=== PATIENT | male | born 1945 | race Caucasian/White ===

== ENCOUNTER 2016-06-03 09:59 | Inpatient (IN) | payer OTHER ==
[~2016-06-03 09:59] MED LIST: ACETAMINOPHEN 325 MG TAB PO ONE; CEFAZOLIN 2 GM/DEXTR 100 ML IV ONE; CHLORHEXIDINE GLUC HIBICLENS 118 ML BTL TP ONE; DEXAMETHASONE 4 MG/ML VIAL IVP ONE; FAMOTIDINE 20 MG TAB PO ONE; ROPIVACAINE 0.2% 80 MG, EPINEPHrine 0.2 MG in BAG 0 ML IU ONE; SKIN ADHESIVE (DERMABOND) 1 EACH TP ONE; TRANEXAMIC ACID 3,000 MG in NS 50 ML IRR ONE; TRANEXAMIC ACID 3,000 MG/50 ML BAG IRR ONE; VANCOMYCIN 1 GM VIAL IV ONE
[2016-06-03] MEDS ORDERED: FAMOTIDINE 20 MG TAB ONE (10:48)
[2016-06-03] MEDS ORDERED: CEFAZOLIN 2 GM/DEXTROSE/100 ML BAG IV ONE (10:49)
[2016-06-03] MEDS ORDERED: DEXAMETHASONE 4 MG/ML VIAL ONE (10:49)
[2016-06-03] MEDS ORDERED: ACETAMINOPHEN 325 MG TAB ONE (10:50)
[2016-06-03] MEDS ORDERED: PROPOFOL 200 MG/20 ML VIAL ONE (11:17)
[2016-06-03] MEDS ORDERED: fentaNYL 100 MCG/2 ML INJ ONE (11:17)
[2016-06-03] MEDS ORDERED: MIDAZOLAM 2 MG/2 ML VIAL ONE (11:43)
[2016-06-03] MEDS ORDERED: LIDOCAINE 2% 5 ML SDV ONE (12:13)
[2016-06-03 12:17] LABS: ANION GAP 8 mEq/L (8-16); CALCIUM 9.3 mg/dL (8.5-10.4); CARBON DIOXIDE 23 mEq/l (22-31); CHLORIDE 112 mEq/L (97-110); CREATININE 2.6 mg/dL (0.7-1.3); GLOMERULAR FILTRATION RATE 24; GLUCOSE 119 mg/dL (70-100); POTASSIUM 5.5 mEq/L (3.5-5.2); SODIUM 143 mEq/L (134-144)
[2016-06-03] MEDS ORDERED: PROPOFOL/EMULSION 500 MG/50 ML BOTTLE IV ONE (12:24)
[2016-06-03] MEDS ORDERED: hydrALAZINE 20 MG/ML VIAL ONE (13:38)
[2016-06-03] MEDS ORDERED: diphenhydrAMINE 25 MG CAP PO PRN (13:42)
[2016-06-03] MEDS ORDERED: DIPHENOXYLATE/ATROPINE LOMOTIL 1 TAB PO PRN (13:42)
[2016-06-03] MEDS ORDERED: PHARMACY PAIN CONSULT 1 EA MISC PRN (13:42)
[2016-06-03] MEDS ORDERED: CYCLOBENZAPRINE 10 MG TAB PO PRN (13:42)
[2016-06-03] MEDS ORDERED: ONDANSETRON 4 MG/2 ML VIAL IVP PRN (13:42)
[2016-06-03] MEDS ORDERED: METOCLOPRAMIDE 10 MG/2 ML VIAL IVP PRN (13:42)
[2016-06-03] MEDS ORDERED: ONDANSETRON DISINTEGRATING 4 MG TAB PO PRN (13:42)
[2016-06-03] MEDS ORDERED: TEMAZEPAM 15 MG CAP PO PRN (13:42)
[2016-06-03] MEDS ORDERED: POLYETHYLENE GLYCOL 3350 17 GM PKT PO PRN (13:42)
[2016-06-03] MEDS ORDERED: MAGNESIUM HYDROXIDE 30 ML UDCUP PO PRN (13:42)
[2016-06-03] MEDS ORDERED: BISACODYL 10 MG SUPP PR PRN (13:42)
[2016-06-03] MEDS ORDERED: LACTULOSE 20 GM/30 ML UDCUP PO PRN (13:42)
[2016-06-03] MEDS ORDERED: PROMETHAZINE HCL 25 MG SUPPR PR PRN (13:42)
--- NOTE | 2016-06-03 13:42 | POSTOPPROG ---
Post Op Note Date of Operation: 06/03/16 Surgeon: Viktoria Paredes Outreach Manager: usha paredes Anesthesiologist: dr. pierre Anesthesia: Spinal, Other (Specify) (adductor canal block) Pre-op Diagnosis: right knee OA Post-op Diagnosis: same Indication: right knee pain due to OA that failed conservative measures Procedure: R TKA Findings: severe knee OA Inf/Abcess present in the surg proc area at time of surgery?: No EBL: 50-100
[2016-06-03] MEDS ORDERED: NS 1,000 ML IV SCH (13:45)
[2016-06-03] MEDS ORDERED: NON-FORMULARY NEW DRUG (Propylene Glycol/Peg 400/Pf [Systane 0.3-0.4% Eye Drops] 1 EACH) OP PRN (13:47)
[2016-06-03] MEDS ORDERED: COLCHICINE 0.6 MG CAP/TAB PO PRN (13:47)
[2016-06-03] MEDS ORDERED: TEARS/DEXTRAN 70/HYPROMELLOSE 15 ML OPHT.BTL EACHEYE PRN (15:11)
[2016-06-03] MEDS: oxyCODONE IR 5 MG TAB PO PRN ×3 (16:47→20:35)
[2016-06-03] MEDS: ACETAMINOPHEN 325 MG TAB PO SCH ×2 (17:36→23:30)
[2016-06-03] MEDS: LABETALOL HCL 100 MG TAB PO SCH (20:31)
[2016-06-03] MEDS: MINOXIDIL 10 MG TAB PO SCH (20:34)
[2016-06-03] MEDS: ASPIRIN 81 MG CHEWABLE TAB PO SCH (20:34)
[2016-06-03] MEDS: SENNOSIDES/DOCUSATE SODIUM TAB PO SCH (20:35)
[2016-06-03] MEDS: ceFAZolin 2 GM/DEXTROSE 100 ML IV SCH (20:36)
--- NOTE | 2016-06-03 23:10 | GCON ---
[f rep st] CONSULTATION DATE OF CONSULTATION: 06/02/2016 REFERRING PHYSICIAN: Christian Ford MD I am asked by Dr. Jose Ford to evaluate and assist in the care of this patient, who is in for total knee replacement and has history of renal disease and diabetes. HISTORY: The patient has history of longstanding joint problems, including both knees, and he has h ad multiple knee surgeries, including a previous left knee replacement and comes in now for a right total knee arthroplasty, which was done earlier today. The patient tolerated the surgery well and h ad no complications. I am seeing the patient back in his hospital room after the surgery this eveni ng. He feels well with some modest knee pain. There is no nausea, chest pain, shortness of breath, neurologic symptoms, or other concerning symptoms. He has eaten. He has no symptoms of fever. REVIEW OF SYSTEMS: Ten systems reviewed and reveals no other concerning abnormalities. PAST MEDICAL HISTORY: Chronic type 2 diabetes mellitus, diabetic nephropathy with chronic kidney di sease, sleep apnea, hypertension, gout, coronary disease which is nonobstructive, senile macular deg eneration, osteoarthritis, and a tongue-reduction surgery. FAMILY HISTORY: Diabetes mellitus. SOCIAL HISTORY: The patient is , does not smoke, uses only modest amount of alcohol. ALLERGIES: Gabapentin and clindamycin. MEDICATIONS: I have reviewed his home medicine list, which is reconciled by our pharmacist, and Dr. Ford has ordered appropriate medications. PHYSICAL EXAMINATION: VITAL SIGNS: This evening, he has blood pressure initially 153/80, pulse of 58, respirations 18, temperature is 36.8. GENERAL: The patient is lying in a hospital bed, wide aw farzad, alert, normally oriented. He is relaxed. Respirations are not labored. SKIN: Warm and dry w ith good color. HEENT: Unremarkable. Voice is normal. NECK: No swelling, mass, adenopathy, or t [place] displacement. LUNGS: Clear breath sounds. HEART: Regular without murmur. ABDOMEN: Soft , nondistended. Bowel sounds are present. No palpable abnormality. Nontender. EXTREMITIES: His right leg has a cooling device on the knee over Teofilo wraps, and there is compression stocking on. Th e foot is warm with minimal swelling. The left leg looks good overall. Upper extremities unremarka ble. There is no bleeding or bruising. No rashes. LABORATORY DATA: So far today, blood sugars running between 119 and 138. Chemistry with potassium 5.5, creatinine 2.6, with his longstanding creatinine baseline recently around 2.3. IMPRESSION: 1. Status post successful total knee arthroplasty without complications. 2. Chronic kidney disease, currently with trending very near to his baseline. 3. Hyperkalemia. 4. Diabetes mellitus with reasonable control at this time. RECOMMENDATIONS: 1. Will recheck his renal function in the morning. At this point, it would be reasonable to contin ue some IV fluid to ensure that his kidneys are adequately perfused, and this has already been order ed by Dr. Ford. 2. Will recheck potassium in the morning. Will avoid medicines that may aggravate hyperkalemia as possible. 3. I have discontinued the order for magnesium-containing laxatives, as these would be relatively c ontraindicated in his renal state. 4. Will follow his sugars closely and make adjustments in treatment as indicated. /[id number]/MODL
[2016-06-04 03:30] VITALS: RESP 16; TEMP 98.6
[2016-06-04] MEDS: ceFAZolin 2 GM/DEXTROSE 100 ML IV SCH (03:52)
[2016-06-04] MEDS: oxyCODONE IR 5 MG TAB PO PRN ×3 (03:52→11:03)
[2016-06-04] MEDS: ACETAMINOPHEN 325 MG TAB PO SCH ×2 (05:25→11:03)
[2016-06-04 05:46] LABS: HEMATOCRIT 26.2 % (40.0-51.0); HEMOGLOBIN 8.7 g/dL (13.7-17.5)
[2016-06-04 06:03] LABS: ANION GAP 9 mEq/L (8-16); CALCIUM 8.8 mg/dL (8.5-10.4); CARBON DIOXIDE 20 mEq/l (22-31); CHLORIDE 111 mEq/L (97-110); CREATININE 2.7 mg/dL (0.7-1.3); GLOMERULAR FILTRATION RATE 23; GLUCOSE 122 mg/dL (70-100); POTASSIUM 5.2 mEq/L (3.5-5.2); SODIUM 140 mEq/L (134-144)
[2016-06-04] MEDS: MINOXIDIL 10 MG TAB PO SCH (07:51)
[2016-06-04] MEDS: LABETALOL HCL 100 MG TAB PO SCH (07:52)
[2016-06-04] MEDS: SENNOSIDES/DOCUSATE SODIUM TAB PO SCH (07:54)
[2016-06-04] MEDS: ASPIRIN 81 MG CHEWABLE TAB PO SCH (07:54)
[2016-06-04] MEDS ORDERED: ROSUVASTATIN CALCIUM 20 MG TAB PO SCH (09:00)
[2016-06-04] MEDS ORDERED: FAMOTIDINE 20 MG TAB PO SCH (09:00)
--- NOTE | 2016-06-04 09:55 | SOAPPROG ---
SOAP Progress Note Assessment/Plan: Assessment: Rivera is doing well POD 1 s/p R TKA 1. pain management: pain is well controlled on oral pain meds 2. VTEppx: recommend ASA 81mg BID daily for 3 weeks. rec PURVI and SCDs. Prior to surgery he was on 81 mg daily 3. Anemia: H/H 8.7/26 level expected initially postop as patient had 12/36 H/H on 05/11/16, asymptomatic. Will order H/H outpatient through home health 4. D/c planning: recommend d/c to home with home health services pending release from PT today. 5. postop urinary retention: resolved today 6. muscle spasms: flexeril alleviated symptoms, will send script to patient's pharmacy via our EMR system at [facility] 7. CKD: Cr 2.7 today, yesterday 2.6. stable. appreciate hospitalist input in managing his comorbidities. Will order BMP outpatient through home health 8. hyperkalemia: improved today, K 5.2 (WNL) today, 5.5 yesterday. appreciate hospitalist input in managing his comorbidities. Plan: 06/04/16 09:51 06/04/16 09:55 Subjective: Rivera is doing well today, denies SOB, chest pain and N/v. states muscle spasms improved with flexeril. had home health services after his L TKA several years ago and he would like it postop R TKA. Objective: Vital Signs Temp Pulse Resp BP Pulse Ox 37.0 C 60 16 146/72 H 99 06/04/16 03:29 06/04/16 07:52 06/04/16 03:29 06/04/16 07:52 06/04/16 03:29 Laboratory Results 06/04/16 05:24 06/04/16 05:24 06/03/16 06/04/16 06/05/16 05:59 05:59 05:59 Intake Total 2250 Output Total 850 Balance 1400 RLE: incision dressing is clean and dry, NVI, +pf/df ICD10 Worksheet Patient Problems: Problems Problem Status Onset HTN (hypertension) Acute Primary localized osteoarthritis of right knee Acute CKD (chronic kidney disease) Chronic Diabetes Chronic Osteoarthritis of knee Acute GEOVNANA (obstructive sleep apnea) Chronic
--- NOTE | 2016-06-04 10:04 | PDFACE2FAC ---
Face to Face Encounter 1. I certify that this patient is under my care and that I, or a nurse practitioner or physician's surveyor's assistant working with me, had a zowo-xq-[id number] encounter that meets the physician ywpu-az-[id number] encounter requirements with this patient on 06/04/16. 2. I certify that based on my findings, the following services are medically necessary home health services: [X Nursing] [X Physical Therapy] [ Speech-Language Pathology] 3. The medical condition and clinical findings that support the need for specialized skills, knowledge and judgement of the above services are: [s/p R TKA must use FWW and has multiple comorbidities] 4. I certify this patient is homebound* because [the patient's condition restricts their ability to leave their home except with the assistance of another individual or the aid of a supportive device.] must use FWW I certify that this patient is confined to his/her home and needs intermittent halfway care, physical and/or speech therapy. This patient is under my care and I have authorized home health services. * Homebound is defined by Medicare as follows: absences from home require considerable and tacking effort and or for medical reasons or zoroastrian services or are infrequent or of short duration when for other reasons*.
--- NOTE | 2016-06-04 10:08 | PDIAF ---
- Diagnosis Diagnosis: s/p R TKA with diabetes and CKD Code Status: Full Code - Medication Management Discharge Medications: Medications to Continue on Transfer Minoxidil [Minoxidil 10 mg (*)] 5 mg PO BID 10/30/13 [Last Taken 06/02/16] Aflibercept [Eylea] 2 mg LEFTEYE Q84D 04/29/16 [Last Taken 06/02/16] Colchicine [Colchicine (*)] 1.2 mg PO AD PRN 04/29/16 [Last Taken 06/02/16] Labetalol HCl [Trandate 100 mg (*)] 150 mg PO BID 04/29/16 [Last Taken 06/03/16] Propylene Glycol/Peg 400/Pf [Systane 0.3-0.4% Eye Drops] 1 each OP Q4-6PRN PRN 04/29/16 [Last Taken Unknown] Rosuvastatin Calcium [Crestor 20mg (*)] 20 mg PO DAILY 04/29/16 [Last Taken ] Zolpidem Tartrate [Ambien] 5 mg PO HS 04/29/16 [Last Taken 06/02/16] clonIDINE [Catapres (*)] 0.2 mg PO BID 04/29/16 [Last Taken 06/02/16] clonIDINE [Catapres-Tts (*)] 0.3 mg TD SA 04/29/16 [Last Taken 06/02/16] Acetaminophen [Tylenol 325mg (*)] 650 mg PO Q6HRS #0 tab 06/04/16 [Last Taken Unknown] Aspirin [Aspirin 81mg (*)] 81 mg PO BID #0 tab.chew 06/04/16 [Last Taken Unknown ] Cyclobenzaprine [Flexeril 10 MG (*)] 10 mg PO Q8HRS PRN #0 tab 06/04/16 [Last Taken Unknown] Sennosides/Docusate Sodium [Senokot-S] 1 - 2 tab PO BID #0 tab 06/04/16 [Last Taken Unknown] oxyCODONE IR [Oxycodone Ir (*)] 5 - 10 mg PO Q3HRS PRN #0 tab 06/04/16 [Last Taken Unknown] Discharge Medications: Refer to the Discharge Home Medication list for PRN reason. - Orders Services needed: Home Care, Registered Nurse, Physical Therapy Home Care Face to Face: I certify that this patient was under my care and that I had the required kewl-si-[id number] encounter meeting the encounter requirements on the discharge day. My findings support the fact that the patient is homebound as defined in CMS Chapter 7 Medicare Benefits Manual 30.1.1, The condition of the patient is such that there exists a normal inability to leave home and consequently, leaving home would require a considerable and taxing effort. Diet Recommendation: no restrictions on diet Diet Texture: Regular Texture Diet Additional: Joint Protocol-Knee Replacement. Follow up with Dr. Kilgore office as scheduled 06/23/16 at 1:45pm. After surgery instructions: Take Aspirin 81mg by mouth twice daily for 3 weeks (helps to prevent blood clots). Wear thigh high PURVI hose on both legs during the daytime for 2 weeks (helps to prevent blood clots and decrease swelling in the surgical leg). It is ok to remove PURIV hose at night time to give your legs a break. It is common for swelling and bruising to occur in the entire surgical leg even extending to the foot, if concerned call Dr. Maciel office [phone]. Elevate the surgical leg with the ankle above the hip several times a day. Ideally anytime you are resting throughout the day. Attempt to keep the knee straight while elevating by placing pillows under the ankle instead of the knee to elevate. This may be painful, so please do as much as tolerated. This will help you achieve full knee extension. Use a walker for 7-14 days. Start physical therapy. Wear an samira wrap on the knee for 3-4 days after surgery, then it is no longer needed. Do exercises in the book 2-3 times a day. Ice at least 3-5 times a day for 30 minutes each time, if not more often. We also recommend using the ice machine before falling asleep to help with pain. If you have further questions that are not addressed here, please look at the information packet handed to you at the preop appointment. Most will be answered on the FAQs, after surgery instructions and incision care pages. *IF YOU HAVE A LIFE THREATENING EMERGENCY , CALL 911. FOR NON-LIFE THREATENING ISSUES, PLEASE CALL DR. KILGORE OFFICE FIRST. A PHYSICIAN IS LOSS PREVENTION REPRESENTATIVE 03/10. Incision/Dressing Care: May shower tomorrow, please cover incision dressing (delcid one) with saran wrap or press-n- seal before showering as the incision dressing is water resistant, but not waterproof. Keep the incision (delcid) dressing clean and dry. If the incision dressing gets soiled or wet underneath, change dressing to the dressing given to you by the hospital. (delcid dressing will turn black if drainage occurs). Remove incision dressing (delcid one) two weeks after surgery. Leave steri strips alone. They will fall off on their own. Do not have anyone else remove the incision dressing prior to the stated recommendation (2 weeks after surgery) . If there are incision concerns, contact Dr. Mcaiel office. (Cat or Dr. Ford may remove earlier if concerns arise). If incision site (delcid dressing) has drainage for more than 4 days or requiring you to change the dressing once a day, call Dr. Maciel office, . Cat and Dr. Ford may ask you to come into the office for further evaluation - Labs/Radiology BMP Date: 06/09/16 (morning call Dr. Ford's office and ask for Alie at [phone]) HCT/HGB Date: 06/09/16 (morning, results called into Alie at Dr. Ford's office at [phone]) Call or Fax Lab and Imaging Results to: Alie at Dr. Ford's office at - Follow Up Care Current Providers and Referrals: Viktoria Ford MD [Medical Doctor] - 06/23/16 1:45 pm Doctor Not,On Staff, [Primary Care Provider] -
--- NOTE | 2016-06-04 10:27 | SOAPPROG ---
SOAP Progress Note Assessment/Plan: Assessment:Patient doing very well, he is POD#1 s/p right total knee arthroplasty under a spinal anesthetic with adductor canal block performed for postop pain control. He did very well postop, pain well controlled. Anemia is present, and expected, as a consequence of intra- and postop blood loss, will be corrected during the following days. Creatinine basically unchanged from yesterday, K values decreased to normal levels. He has a follow-up appointment with his annealer on June 09, and any issues related to his chronic renal insufficiency will be addressed. Plan: He had an uneventful postop course and will be discharged today. 06/04/16 10:22 Objective: Vital Signs Temp Pulse Resp BP Pulse Ox 37.0 C 60 16 146/72 H 99 06/04/16 03:29 06/04/16 07:52 06/04/16 03:29 06/04/16 07:52 06/04/16 03:29 Laboratory Results 06/04/16 05:24 06/04/16 05:24 06/03/16 06/04/16 06/05/16 05:59 05:59 05:59 Intake Total 2250 Output Total 850 Balance 1400 ICD10 Worksheet Patient Problems: Problems Problem Status Onset HTN (hypertension) Acute Primary localized osteoarthritis of right knee Acute CKD (chronic kidney disease) Chronic Diabetes Chronic Osteoarthritis of knee Acute GEOVANNA (obstructive sleep apnea) Chronic
--- NOTE | 2016-06-04 11:46 | GDS ---
[f rep st] DISCHARGE SUMMARY ADMISSION DIAGNOSIS: Right knee osteoarthritis. DISCHARGE DIAGNOSIS: Right knee osteoarthritis. PROCEDURE: Right total knee arthroplasty. VTE PROPHYLAXIS: Aspirin recommended 81 mg b.i.d. for 3 weeks. BRIEF DESCRIPTION OF HOSPITAL STAY: Patient was admitted for an elective joint arthroplasty. The p atient tolerated the procedure well and has passed physical therapy. The patient was given appropri ate antibiotic prophylaxis and venous thromboembolism prophylaxis. The patient's pain was well cont rolled on oral pain medication, patient was holding down food, and had urinated. Decision was made to discharge the patient. The patient was given post-operative prescriptions pre-operatively. PLAN: Please follow up as scheduled with Dr. Ford's office June 23 at 1:45 p.m. /[id number]/MODL
[2016-06-04 11:56] VITALS: BP 165/96
--- NOTE | 2016-06-04 12:01 | GOP ---
[f rep st] OPERATIVE REPORT DATE OF OPERATION: 06/03/2016 SURGEON: Christian Ford MD HARBORMASTER: RAHUL Mancuso ANESTHESIA: Spinal. PREOPERATIVE DIAGNOSIS: Right knee osteoarthritis. POSTOPERATIVE DIAGNOSIS: Right knee osteoarthritis. PROCEDURE PERFORMED: Right total knee arthroplasty. FINDINGS: Pathology of severe tricompartmental arthritis. Preop flexor contraction to 10 degrees. ESTIMATED BLOOD LOSS: 100 mL. INDICATIONS: This is a 70-year-old male with severe and progressive pain and deformity of the right knee unresponsive to conservative care. Risks and benefits of the surgical intervention were expla ined in detail. DESCRIPTION OF PROCEDURE: The patient was brought to the operative room and placed on the table in the supine position. Spinal anesthesia was induced without difficulty. A pneumatic tourniquet was applied about the right proximal thigh, and the leg was prepped and draped in a sterile fashion. Th e leg arredondo was applied. After exsanguination by elevation the tourniquet was inflated to 250 mm o f mercury. Incision was made anterior medial from the tibial tuberosity to a point 2 cm proximal to the superio r pole of the patella. Medial parapatellar arthrotomy was carried out from the superior pole of the patella and posteriorly in line with the fibers of the Type II VMO. The medial collateral ligament was elevated and the infrapatellar fat pad was resected. The patella was everted and the articular surface was excised. A 35 mm patellar button was placed. The distal femoral guide hole was drilled and the 6-degree alignment kailee was placed. A 10 mm distal femoral cut was made without difficulty. Attention was turned to the tibia and a standard 4 mm cut based on the medial tibial condyle was per formed. The tibial articular surface was excised without difficulty. Attention was turned back to the femur and a size 6 Triathlon femoral cutting block was positioned. Anterior, posterior, and chamfer cuts were made, followed by the intercondylar box cut. The knee was extended and the remnants of the medial and lateral meniscus were excised. The posteri or capsule was injected with ropivacaine, epinephrine and Toradol. A size 7 MIS mini-keel tibial tr ay was positioned. Trial reduction was then carried out. There was excellent range of motion, alig nment, and stability using the 9 mm polyethylene. All trials were then removed. The joint was thoroughly irrigated and carefully dried. Two packages of cement and 2 grams of vancomycin were mixed in the vacuum mixer and placed on the fixation surfa heide of all surfaces of the components. The components were implanted and all excess cement was thor oughly removed. The permanent 9 mm polyethylene was placed without difficulty. The tourniquet was deflated and all bleeders were coagulated. The wound was thoroughly irrigated an d closed using interrupted sutures of 2-0 Vicryl for the joint capsule. The subcu was closed with 3 -0 Vicryl and the skin with 4-0 Monocryl. Dermabond and Steri-Strips were applied followed by a com pressive dressing. The patient was then moved from the operating room to the recovery room in good condition, having tolerated the procedure well. /[id number]/MODL
[2016-06-04 12:05] VITALS: PULSE 57; O2SAT 97
--- NOTE | 2016-06-04 12:53 | HOSPPROG ---
Hospitalist Progress Note Assessment/Plan: # HTN - remains stable overnight - SBP 120-160 overnight - cont labetalol, minoxidil and clonidine at home dosing # CKD - presented at creatinine 2.6 - suspect this is likely new baseline repeat creatinine 2.7 stable this am -after IVF overnight - no need for med changes at dc # DM - BS 113-210 - cont home meds # Acute blood loss anemia - hbg 8 post-op - VS stable - follow with Liliana # Total Knee arthroplasty - XRAy ( personally reviewed and interpreted) knee arthroplasy - follow up per Liliana I have discussed the case with Case Management patient discharging to home today Subjective: no events overnight Objective: Vital Signs Temp Pulse Resp BP Pulse Ox 37.0 C 57 L 16 165/96 H 97 06/04/16 03:29 06/04/16 08:30 06/04/16 03:29 06/04/16 11:01 06/04/16 08:30 Laboratory Results 06/04/16 05:24 06/04/16 05:24 06/03/16 06/04/16 06/05/16 05:59 05:59 05:59 Intake Total 2250 Output Total 850 Balance 1400 - Physical Exam Constitutional: appears nourished Eyes: anicteric sclera Ears, Nose, Mouth, Throat: moist mucous membranes Cardiovascular: regular rate and rhythym Respiratory: no respiratory distress Gastrointestinal: normoactive bowel sounds Genitourinary: no bladder fullness Skin: warm Musculoskeletal: No asymmetric calves Neurologic: AAOx3 Psychiatric: interacting appropriately Lymph, Heme, Immunologic: no cervical LAD ICD10 Worksheet Patient Problems: Problems Problem Status Onset HTN (hypertension) Acute Osteoarthritis of knee Acute Primary localized osteoarthritis of right knee Acute CKD (chronic kidney disease) Chronic Diabetes Chronic GEOVANNA (obstructive sleep apnea) Chronic
[2016-06-04] MEDS ORDERED: ASPIRIN 81 MG CHEWABLE TAB PO SCH (21:00)
== END 2016-06-04 11:45 | disposition home health service (06) | DRG 470 ==
LOC: F3E 09:59 → F3N 14:53
PROVIDERS: ADMIT Orthopaedic Surgery; ATTEND Orthopaedic Surgery
PROC: 0SRC0J9 Replacement of Right Knee Joint with Synthetic Substitute, Cemented, Open Approach (ICD-10-PCS; principal; 2016-06-03 12:15)
DX: M17.11 Unilateral primary osteoarthritis, right knee (principal); D62 Acute posthemorrhagic anemia; E11.22 Type 2 diabetes mellitus with diabetic chronic kidney disease; N18.9 Chronic kidney disease, unspecified; I12.9 Hypertensive chronic kidney disease with stage 1 through stage 4 chronic kidney disease, or unspecified chronic kidney disease; E87.5 Hyperkalemia; R33.9 Retention of urine, unspecified; M62.838 Other muscle spasm; Z96.652 Presence of left artificial knee joint
CPT/HCPCS: 97110-GP; 97116-GP; 97161-GP; 97165-GO; C1713; G8978-GP-CJ; G8979-GP-CI; G8987-GO-CI; G8988-GO-CI; G8989-GO-CI; J0171; J0360; J0690; J1100; J2250; J2704; J2795; J3010; J3370

== ENCOUNTER 2018-05-24 08:28 | Day surgery (SDC) | payer OTHER ==
--- NOTE | 2018-05-17 11:36 | GHP ---
[f rep st] PREOP HISTORY AND PHYSICAL DATE OF ADMISSION: 05/24/2018 CHIEF COMPLAINT: End-stage renal disease. HISTORY OF PRESENT ILLNESS: This is a 72-year-old male in need of peritoneal dialysis catheter for c hronic renal failure which has progressed to the point of needing dialysis. He denies a history of m ajor intraabdominal surgery. REVIEW OF SYSTEMS: Ten-point review of systems is negative aside from what is in the HPI. PAST MEDICAL HISTORY: End-stage renal disease, gout, hypertension, obstructive sleep apnea. PAST SURGICAL HISTORY: None. ALLERGIES: Klonopin, hydralazine, allopurinol, gabapentin, clindamycin. MEDICATIONS: Labetalol, clonidine, calcitriol, minoxidil, colchicine, prednisone, Flomax, Uloric. SOCIAL HISTORY: The patient is a former smoker. FAMILY HISTORY: Noncontributory. PHYSICAL EXAM: GENERAL: Well-appearing 72-year-old male in no acute distress. HEENT: Normocephali c, atraumatic. No gross hearing deficits. Mucous membranes are moist. PERRLA. CARDIAC: Regular ra te and rhythm. No clicks, murmurs, or rubs. CHEST: Clear to auscultation bilaterally. No wheezes, rales, or rhonchi. ABDOMEN: Soft, nontender without masses, organomegaly, or hernias. EXTREMITIES : Moves all extremities equally x4. NEUROLOGIC: Alert and oriented. PSYCHIATRIC: Appropriate moo d and affect. IMPRESSION AND PLAN: This is a patient with end-stage renal disease who is in need of a peritoneal d ialysis catheter for dialysis. We have discussed all risks and options. Risks of surgery include, b ut are not limited to, infection, bleeding, need for further surgery, heart attack, and . Patie nt understands and wishes to proceed. We will proceed with laparoscopic peritoneal dialysis catheter placement. /[id number]/MODL
[2018-05-24] MEDS ORDERED: ceFAZolin 2 GM/DEXTROSE 100 ML IV ONE (09:55)
--- NOTE | 2018-05-24 10:06 | PDHPUP ---
History & Physical Update H&P update statement: This history and physical update is based on an assessment of the patient which was completed after admission or registration (within 24 hours), but prior to the surgery/procedure. H&P update: H&P reviewed & patient examined, no change in patient's condition since H&P completed
--- NOTE | 2018-05-24 10:12 | PDANEPAE ---
ANE History of Present Illness Renal failure for peritoneal dialysis cath placement. ANE Past Medical History - Cardiovascular History Hx Hypertension: Yes Hx Arrhythmias: No Hx Chest Pain: No Hx Coronary Artery / Peripheral Vascular Disease: No Hx CHF / Valvular Disease: No Hx Palpitations: No Cardiovascular History Comment: 2009-heart cath. Labile BP multiple meds. - Pulmonary History Hx COPD: No Hx Asthma/Reactive Airway Disease: No Hx Recent Upper Respiratory Infection: No Hx Oxygen in Use at Home: No Hx Sleep Apnea: Yes Sleep Apnea Screening Result - Last Documented: Positive Pulmonary History Comment: BIPAP for sleep apnea. - Neurologic History Hx Cerebrovascular Accident: No Hx Seizures: No Hx Dementia: No - Endocrine History Hx Diabetes: No Endocrine History Comment: Type 2 DM BUT WELL-CONTROLLED ALREADY; NOT ON ANY MEDICATION FOR IT - Renal History Hx Renal Disorders: Yes Renal History Comment: IGA neuropathy both kidneys. CKD - Liver History Hx Hepatic Disorders: No - Neurological & Psychiatric Hx Hx Neurological and Psychiatric Disorders: No - Cancer History Hx Cancer: No - Congenital Disorder History Hx Congenital Disorders: No - GI History Hx Gastrointestinal Disorders: No - Other Health History Other Health History: neuropathy L eye. Joint arthritis&gout.Bulging disc L4. Permanent lower bridge secured. MILD GLAUCOMA - Chronic Pain History Chronic Pain: Yes (LOWER BACK) - Surgical History Prior Surgeries: LEFT TOTAL KNEE 11/2013. 2011-uvulalectomy& nasal septum repair.. 2011-bunion L foot. 2009-heart cath. 1987-R rotater cuff. 3 scopes R knee, 2 scopes L knee. Tonsils as child. R tka 2016. LOWER BACK SX 2018 ANE Review of Systems Review of Systems: - Exercise capacity METS (RN): 4 METS ANE Patient History - Allergies Allergies/Adverse Reactions: gabapentin Allergy (Severe, Verified 05/22/18 16:59) Hypotension clindamycin Allergy (Intermediate, Verified 05/22/18 16:59) Rash allopurinol Allergy (Mild, Verified 05/24/18 10:04) Unknown amlodipine [From Norvasc] Allergy (Mild, Verified 05/24/18 10:04) Edema of Extremities - Home Medications Home medications: home medication list seen and reviewed Home Medications: Minoxidil [Minoxidil 10 mg (*)] 10/30/13 [Last Taken 06/02/16] Aflibercept [Eylea] 04/29/16 [Last Taken 06/02/16] Colchicine [Colchicine (*)] 04/29/16 [Last Taken 06/02/16] Labetalol HCl [Trandate 100 mg (*)] 04/29/16 [Last Taken 06/03/16] Propylene Glycol/Peg 400/Pf [Systane 0.3-0.4% Eye Drops] 04/29/16 [Last Taken Unknown] Rosuvastatin Calcium [Crestor 20mg (*)] 04/29/16 [Last Taken 06/02/16] Zolpidem Tartrate [Ambien] 04/29/16 [Last Taken 06/02/16] clonIDINE [Catapres (*)] 04/29/16 [Last Taken 06/02/16] clonIDINE [Catapres-Tts (*)] 04/29/16 [Last Taken 06/02/16] Acetaminophen [Tylenol 325mg (*)] 10/05/17 [Last Taken Unknown] Aspirin [Aspirin 81mg (*)] 10/05/17 [Last Taken Unknown] Sennosides/Docusate Sodium [Senokot-S] 10/05/17 [Last Taken Unknown] - Anes Hx Anes Hx: no prior problems - Smoking Hx Smoking Status: Never smoked - Family Anes Hx Family Hx Anesthesia Complications: none ANE Labs/Vital Signs - Labs Result Diagrams: 05/24/18 09:55 05/24/18 10:35 - Vital Signs Height: 172.72 cm Weight: 88.451 kg ANE Physical Exam - Airway Mallampati Score: Class 2 Mouth exam: normal dental/mouth exam - Pulmonary Pulmonary: no respiratory distress - Cardiovascular Cardiovascular: regular rate and rhythym - ASA Status ASA Status: III ANE Anesthesia Plan Anesthesia Plan: general endotracheal anesthesia
[2018-05-24] MEDS ORDERED: POVIDONE-IODINE 30 GM OINTTUBE TP ONE (10:30)
[2018-05-24] MEDS ORDERED: BUPIVACAINE 0.5% 30 ML SDV ONE (10:30)
[2018-05-24] MEDS ORDERED: MIDAZOLAM 2 MG/2 ML VIAL IVP ONE (10:40)
[2018-05-24] MEDS ORDERED: NS 1,000 ML IV ONE (10:44)
[2018-05-24] MEDS ORDERED: MIDAZOLAM 2 MG/2 ML VIAL ONE (10:46)
[2018-05-24 10:54] LABS: PLATELET COUNT 159 10^3/uL (150-400)
[2018-05-24] MEDS ORDERED: fentaNYL 100 MCG/2 ML INJ ONE (10:55)
[2018-05-24] MEDS ORDERED: PROPOFOL 200 MG/20 ML VIAL ONE (10:55)
[2018-05-24] MEDS ORDERED: ROCURONIUM 50 MG/5 ML VIAL ONE (10:57)
[2018-05-24] MEDS ORDERED: LIDOCAINE 2% 2 ML INJ ONE (10:57)
[2018-05-24] MEDS ORDERED: GLYCOPYRROLATE 0.2 MG/1 ML VIAL ONE (11:22)
[2018-05-24] MEDS ORDERED: fentaNYL 100 MCG/2 ML INJ IVP PRN (11:45)
[2018-05-24] MEDS ORDERED: NALOXONE HCL 0.4 MG/ML INJ IVP PRN ×2 (11:45→12:36)
[2018-05-24] MEDS ORDERED: SUGAMMADEX SODIUM 200 MG/2 ML VIAL IVP ONE (11:51)
[2018-05-24] MEDS ORDERED: ONDANSETRON 4 MG/2 ML VIAL ONE (11:51)
--- NOTE | 2018-05-24 12:12 | POSTOPPROG ---
Post Op Note Date of Operation: 05/24/18 Surgeon: Marlon Cotter Block Cutter: Blanca Anesthesiologist: Jordy Anesthesia: GET(General Endotracheal) Pre-op Diagnosis: ESRD Post-op Diagnosis: same Indication: same, need for dialysis Procedure: Lap PD catheter placement Findings: Good inflow and outflow Inf/Abcess present in the surg proc area at time of surgery?: No Depth: Organ Space EBL: Minimal Bowel Protocol: N/A Clean Closure Performed: N/A
--- NOTE | 2018-05-24 12:31 | POSTANESTH ---
Post Anesthetic Evaluation Cardiovascular Status: Similar to Pre-Op Cond Respiratory Status: Similar to Pre-op Cond. Level of Consciousness/Mental Status: Alert and Oriented Pain Control: Adequate, Prn Tx Ordered Nausea/Vomiting Control: Adequate, Prn Tx Ordered Complications Possibly Related to Anesthesia: None Noted
[2018-05-24] MEDS ORDERED: ENALAPRILAT DIHYDRATE 1.25 MG/ML VIAL IVP PRN (12:36)
[2018-05-24 14:09] VITALS: BP 123/64
--- NOTE | 2018-05-28 21:35 | GOP ---
[f rep st] OPERATIVE REPORT DATE OF OPERATION: SURGEON: Marlon Ctoter MD ORTHOPEDIC PHYSICAL THERAPIST: Sanjuana Rios NP. PREOPERATIVE DIAGNOSIS: Chronic renal failure. POSTOPERATIVE DIAGNOSIS: Chronic renal failure. PROCEDURE PERFORMED: Laparoscopic peritoneal dialysis catheter placement. FINDINGS: Patient was found to have excellent flow and good position of the catheter. DESCRIPTION OF PROCEDURE: The patient was taken to the operating room where he received a satisfacto ry general endotracheal anesthesia by Dr. Perez. He was placed in a supine position, prepped and drap ed in the usual sterile fashion. A short incision was made in the periumbilical area. Dissection ex tended down to the fascia. Veress needle was inserted. Pneumoperitoneum was established. Trocar wa s introduced. Laparoscope introduced. Good visualization was obtained. A second trocar was placed in the left lower quadrant under direct vision. The catheter was then introduced and positioned in t he deepest part of the pelvis. The trocar was then removed. Fascia was closed over the Dacron pledge t with 0 Vicryl suture. The other end of the catheter was brought out through the 2nd trocar site wh ich had been removed, and that pledget was placed in the subcutaneous tissue. The wound was irrigate d with 500 cc of saline and it returned quite rapidly. The catheter was then fixed to the attachment s for dialysis. Wounds were dressed and infiltrated with 0.5% Marcaine. Subcu was closed with 3-0 V icryl and skin with a 4-0 Monocryl subcuticular stitch. He tolerated the procedure well and taken to the recovery room in good condition. No complications. Blood loss negligible. Copy requested to: Dr. Amanuel Amin /[id number]/[facility] [place]
== END 2018-05-24 14:14 | disposition home or self-care (01) ==
LOC: FSGY 08:28
PROVIDERS: ATTEND Surgery
PROC: 0WHG43Z Insertion of Infusion Device into Peritoneal Cavity, Percutaneous Endoscopic Approach (ICD-10-PCS; principal; 2018-05-24 10:45)
DX: N18.6 End stage renal disease (principal); E11.22 Type 2 diabetes mellitus with diabetic chronic kidney disease; I12.0 Hypertensive chronic kidney disease with stage 5 chronic kidney disease or end stage renal disease; G47.33 Obstructive sleep apnea (adult) (pediatric); M54.9 Dorsalgia, unspecified; M10.9 Gout, unspecified; Z87.891 Personal history of nicotine dependence
CPT/HCPCS: C1750; J0690; J2250; J2405; J2704; J3010